=== PATIENT | female | born 1940 | race Caucasian/White ===

== ENCOUNTER 2016-07-16 18:54 | Inpatient (IN) ==
[2016-07-16 20:11] LABS: Basophils % 0.5 % (0.0-0.8); Eosinophils # 0.3 10*3/uL (0.0-0.87); Eosinophils % 4.5 % (0.00-10.9); Hematocrit 29.4 VOL% (35.7-47.0); Hemoglobin 10.1 GM/DL (12.0-16.0); Immature Granulocytes % 0.3 %; Immature Granulocytes Absolute 0.02 #; Lymphocytes # 3.4 10*3/uL (1.4-4.0); Lymphocytes % 45.2 % (21.3-54.2); Mean Corpuscular HGB Conc 34.4 GM/DL (32-36); Mean Corpuscular Hemoglobin 30 PG (27-34); Mean Corpuscular Volume 88.6 FL (87-102); Mean Platelet Volume 9.7 FL (9.6-12.0); Monocytes # 0.5 10*3/uL (0.11-0.8); Monocytes % 6.9 % (1.7-12.7); Neutrophils # 3.2 10*3/uL (1.4-7.4); Neutrophils % 42.6 % (38.7-73.9); Platelet Count 207 T/CUMM (130-400); Red Blood Count 3.32 MC/CUMM (3.8-5.5); Red Cell Distribution Width 11.5 % (9.3-17.3); White Blood Count 7.5 T/CUMM (4-12)
--- NOTE | 2016-07-16 20:12 | Emergency Department Note ---
Arrival - Arrival Chief Complaint: Abdominal / Flank Pain Stated Complaint: pancreatitus diagnosed pain in back and under rib ED Nursing Triage Note: C/O Upper abd pain radiating into back. Onset July 14. Pt was seen on day of onset and pt reports that she was diagnosed with pancreatitis. Pt state she is taking medications without any relief. Mode of Arrival: Ambulatory Limitations: No Limitations Source: Patient, Old Records Reviewed Time Seen by Provider: 07/16/16 19:34 - History of Present Illness HPI Narrative: The patient complains of continuing abdominal pain and mild nausea. I saw this patient 2 days ago. At that time she complained of upper abdominal pain for the past week. A workup was done which was significant for an elevated lipase and also a large amount of stool seen on the CT scan. I sent her home on hydrocodone, lactulose and Zofran and instructions for a clear liquid diet gradually progressing. She reports no improvement in her symptoms. She states that she is also having some low back pain now. She has had some dark stools as well. Still has had no vomiting. Date of Last Menstrual Period: PM Allergies/Adverse Reactions: Allergies Allergy/AdvReac Type Severity Reaction Status Date / Time Sulfa (Sulfonamide AdvReac Headache Verified 04/08/16 17:03 Antibiotics) Home Medications: Home Medications Medication Instructions Recorded Confirmed Type Levothyroxine Tab [Synthroid Tab] 75 mcg PO AC BREAKFAST 06/23/15 07/16/16 History Aspirin EC Tab 81 mg PO QAM 04/08/16 07/16/16 History Sertraline [Zoloft] 25 mg PO QPM 04/08/16 07/16/16 History Fluticasone 110 Mcg Inhaler 110 mcg INH BID 05/16/16 07/16/16 History [Flovent 110 mcg Inhaler] Metoprolol Succinate 12.5 mg PO QAM 05/16/16 07/16/16 History HYDROcodone/ACETAMIN 7.5-325 1 tablet PO Q4H #20 tablet 07/15/16 07/16/16 Rx [[place] 7.5-325] Lactulose Liquid [Chronulac] 20 gm PO DAILY #7 udcup 07/15/16 07/16/16 Rx Ondansetron [Ondansetron Odt] 4 mg PO Q4H PRN #20 tab.rapdis 07/15/16 07/16/16 Rx Ipratropium/Albuterol Inhaler 1 puff INH QID 07/16/16 07/16/16 History [Combivent Respimat Inhaler] Lisinopril/Hctz 20-25 [Prinzide 1 tablet PO QPM 07/16/16 07/16/16 History 20-25] Pantoprazole Tab [Protonix Tab] 40 mg PO DAILY PRN 07/16/16 07/16/16 History Review of System - Review of System 12 point system: reviewed and no additional remarkable complaints except as stated - Review of System Constitutional: Absent: fever Respiratory: Absent: cough Cardiovascular: Absent: chest pain Gastrointestinal: Present: abdominal pain, nausea, melena (Possible). Absent: vomiting, diarrhea, constipation, hematemesis, hematochezia Musculoskeletal: Present: back pain Medical,Surgical,& Family Hx - Medical History Cardio: History of: Hypertension Endocrine: History of: Thyroid Disorder (hypothyroid) Respiratory: History of: Asthma, COPD Gastrointestinal: History of: Pancreatitis - Surgical History Surgical History: noncontributory - Family History Family History: Reports;: Family Diabetes, Family Hypertension - Social History Smoking Status: Never smoker Frequency of Alcohol Use: None Type of Drug Use: None Exam Physical Examination: GENERAL: Alert. No acute distress. HEENT: Normocephalic and atraumatic. There is no nasal drainage. No pharyngeal erythema or exudate. NECK: Normal inspection. Supple. No lymphadenopathy or meningismus. LUNGS: No respiratory distress. Clear to auscultation bilaterally, no wheezes, rales or rhonchi. HEART: Regular rate and rhythm. ABDOMEN: Soft, nondistended with normal bowel sounds. Mild epigastric tenderness without guarding or rebound. Rectal: Positive noninflamed, nonthrombosed external hemorrhoids. No tenderness. Heme negative. BACK: Normal inspection. SKIN: Color normal. Warm and dry. EXTREMITIES: Nontender. Normal range of motion. No pedal edema. NEUROLOGICAL/PSYCHIATRIC: Alert and oriented -3 with normal mood and affect. Cranial nerves normal. No motor or sensory deficit. Vital Signs: Vital Signs Temperature 98.4 F 07/16/16 19:12 Pulse Rate 86 07/16/16 19:12 Respiratory Rate 14 07/16/16 19:12 Blood Pressure 158/79 07/16/16 19:12 O2 Sat by Pulse Oximetry 98 07/16/16 19:12 Course - Reevaluation(s) Reevaluation #1: Because of the patient's abdominal pain is unclear. Her lipase is now down to 361 and I would have expected her pain and symptoms to improve if this were pancreatitis. She now also has a slightly low sodium and potassium, presumably from the clear liquid diet. I discussed the patient with Dr. Hunter and will admit to Dr. Hopper for observation, fluids, repletion of sodium and potassium and further evaluation. Time: 22:35 Results - Labs CBC & BMP: 07/16/16 20:03 07/16/16 20:03 Lab Results: I have reviewed the patients labs Labs: Laboratory Tests 07/14/16 07/16/16 07/16/16 22:32 19:54 20:03 Total Bilirubin 0.80 AST 17 ALT 17 Alkaline Phosphatase 62 Amylase Lipase 550.0 H Ur Specific [place] 1.002 Urine WBC <1 07/16/16 20:03 Total Bilirubin AST ALT Alkaline Phosphatase Amylase 88 Lipase 361.0 D Ur Specific [place] Urine WBC - Impressions Gallbladder ultrasound shows no evidence of cholecystitis or cholelithiasis. KUB shows no acute abdominal pathology. Disposition Clinical Impression: Anemia, Abdominal pain, Hyponatremia, Hypokalemia Case discussed with: patient, patient's family Disposition: Still a Patient Condition: Stable Time of Disposition: 22:33
[2016-07-16] MEDS ORDERED: SODIUM CHLORIDE 0.9% 1,000 ML IV STA (20:15)
[2016-07-16] MEDS ORDERED: ONDANSETRON 4 MG/2 ML VIAL IV STA (20:15)
[2016-07-16 20:16] LABS: Apearance,Urine CLEAR (Clear); Bilirubin,Urine Negative (Negative); Blood, Urine Negative (Negative); Glucose,Urine (UA) Negative (Negative); Ketones,Urine Negative (Negative); Nitrite,Urine Negative (Negative); Protein,Urine Negative; Squamous Epithelial Cell,Urine Occasional /HPF (0-10); Urine Color Colorless (Yellow); Urine Specific Gravity 1.002 (1.001-1.035); Urine Urobilinogen < 2.0 EU/DL (0.2-1.0); WBC,Urine <1 /HPF (0-6)
--- NOTE | 2016-07-16 20:39 | XRay Report ---
Referring Physician: Ricardo Biggs Exam: XR KUB Date: July 16, 2016 at 8:09 PM Reason: Generalized abdominal pain Comparison: CT abdomen and pelvis July 14, 2016 Findings: There is no evidence of bowel obstruction or free air. No renal calculi are identified. There is degenerative change and scoliosis at the lumbar spine, but no acute osseous process is seen. Impression: No acute abdominal process is identified. PROCEDURE INTERPRETED AT [facility] DEPARTMENT OF RADIOLOGY Final Report Signed by: Dr. Rob Ye
[2016-07-16 20:44] LABS: Albumin 4.1 G/DL (3.4-5.0); Bilirubin,Total 0.8 MG/DL (0.2-1.0); Calcium 9.1 MG/DL (8.5-10.1); Osmolality,Calculated 258.9 MOS/KG (273-304); Potassium 3.3 MMOL/L (3.5-5.1); Total Protein 6.9 G/DL (6.4-8.3)
--- NOTE | 2016-07-16 20:55 | Ultrasound Report ---
Referring Physician: Ricardo Biggs Exam: US gallbladder Date: July 16, 2016 Reason: Abdominal pain Comparison: Right upper quadrant abdominal ultrasound June 23, 2015 Technique: Grayscale and color flow ultrasound images of the right abdomen were obtained. Ultrasound images were captured and stored. Findings: The liver measures 13.7 cm in length. No suspicious hepatic lesion is identified. No gallstones are seen. No abnormal gallbladder wall thickening or pericholecystic fluid is identified. The common bile duct is upper normal in size, measuring 0.5 cm in diameter. The patient reports a history of pancreatitis. However, the pancreas is unremarkable as visualized. Of note, early/mild pancreatitis can sometimes not have imaging findings. The right kidney measures 9.0 x 4.6 x 3.7 cm. No right hydronephrosis or suspicious renal lesion is identified. No ascites is seen, and the visualized IVC appears patent. Impression: 1. There is no sonographic evidence of cholelithiasis or acute cholecystitis. 2. The patient reports a history of pancreatitis. The pancreas is unremarkable as visualized. However, early/mild pancreatitis can sometimes not have imaging findings. PROCEDURE INTERPRETED AT [facility] DEPARTMENT OF RADIOLOGY Final Report Signed by: Dr. Rob Ye
[2016-07-16] MEDS ORDERED: ONDANSETRON 4 MG/2 ML VIAL IV PRN (23:14)
[2016-07-16] MEDS ORDERED: ACETAMINOPHEN 325 MG TABLET PO PRN (23:14)
[2016-07-16] MEDS ORDERED: ONDANSETRON 4 MG/2 ML VIAL ONE (23:41)
[2016-07-17] MEDS: SODIUM CHLOR 0.9% KCL 20 MEQ 20 MEQ/1,000 ML BAG IV SCH ×3 (00:54→17:59)
[2016-07-17] MEDS: ALBUTEROL/IPRATROPIUM 3 ML NEB RESP TX SCH ×4 (07:05→19:12)
[2016-07-17] MEDS: LEVOTHYROXINE 75 MCG TABLET PO SCH (07:07)
[2016-07-17] MEDS: METOPROLOL SUCCINATE XL 25 MG TABLET PO SCH (09:27)
[2016-07-17] MEDS: DOCUSATE SODIUM 100 MG CAPSULE PO SCH ×2 (09:27→20:47)
[2016-07-17] MEDS: PANTOPRAZOLE 40 MG VIAL IV SCH (09:27)
[2016-07-17] MEDS: FLUTICASONE 110 MCG/PUFF INHALER 12 GM INH SCH (09:29)
--- NOTE | 2016-07-17 11:34 | Gastrointestinal Consult Note ---
Assessment and Plan (1) Abdominal pain Status: Acute Assessment and plan: 07/17-1 week history of upper abdominal pain radiating to left upper quadrant and back with associated nausea. No reports of vomiting. Findings 3 days prior of elevated lipase without findings on recent imaging of pancreatitis. No prior endoscopy in the past. Lipase 361. Plan an addendum to followed by Dr. Reese. Current Visit: Yes History of Present Illness Chief complaint: Abdominal pain, nausea History of present illness: Ms. Greco is a 76 year old female who was admitted to the hospital with 1 week history of upper abdominal pain patient states the pain started suddenly in her upper abdomen and radiated across to her left upper quadrant. She states that the pain was severe in nature and was associated with nausea however denies any vomiting. Patient states when the pain initially began she attempted to see Dr. Hopper in clinic however was unable to do so. She went back home and attempted to control her pain but ended up presenting to the ER for evaluation. She was found in the emergency room 3 days ago to have elevated lipase level at 550. She also had a CT of the abdomen without contrast which only showed colonic diverticulosis without diverticulitis. She was sent home at that time on clear liquids however patient states the pain did not improve and she returned back to the ER. At that time she had an abdominal ultrasound which showed no evidence of cholelithiasis or acute cholecystitis with unremarkable findings of the pancreas. Lipase level was down to 361. Patient denies any long-term NSAID use. She denies any reports of dysphagia, odynophagia. She does have reflux however states this is fairly controlled. She does complain of a recent increase in belching and bloating. Denies any melena or hematochezia. Denies any vomiting with coffee-ground or hematemesis. Denies fever, chills. She states that she did have some weight loss, that was unwarranted over the last several months and has tried to change her diet recently and began eating a large amount of fatty foods. She denies any history of alcohol use. Denies any new or recent changes in medications. She has never had endoscopy done in the past. Home Medications Medication Instructions Recorded Confirmed Type Levothyroxine Tab [Synthroid Tab] 75 mcg PO AC BREAKFAST 06/23/15 07/17/16 History Aspirin EC Tab 81 mg PO QAM 04/08/16 07/17/16 History Sertraline [Zoloft] 25 mg PO QPM 04/08/16 07/17/16 History Metoprolol Succinate 12.5 mg PO QAM 05/16/16 07/17/16 History HYDROcodone/ACETAMIN 7.5-325 1 tablet PO Q4H #20 tablet 07/15/16 07/17/16 Rx [[place] 7.5-325] Ondansetron [Ondansetron Odt] 4 mg PO Q4H PRN #20 tab.rapdis 07/15/16 07/17/16 Rx Ipratropium/Albuterol Inhaler 1 puff INH QID 07/16/16 07/17/16 History [Combivent Respimat Inhaler] Lisinopril/Hctz 20-25 [Prinzide 1 tablet PO QPM 07/16/16 07/17/16 History 20-25] Pantoprazole Tab [Protonix Tab] 40 mg PO DAILY PRN 07/16/16 07/17/16 History Fluticasone 110 Mcg Inhaler 110 mcg INH DAILY 07/17/16 07/17/16 History [Flovent 110 mcg Inhaler] Allergies Allergy/AdvReac Type Severity Reaction Status Date / Time Sulfa (Sulfonamide AdvReac Headache Verified 04/08/16 17:03 Antibiotics) Medical,Surgical,& Family Hx - Medical History Cardio: History of: Cardiac Dysrhythmia (has tachycardia at times and has a murmur), Hypertension Psychological: History of: Anxiety Disorders (anxiety at times) Endocrine: History of: Thyroid Disorder (hypothyroid) Respiratory: History of: Asthma, COPD Gastrointestinal: History of: GERD, Hemorrhoids, Pancreatitis - Surgical History Abdominal Surgeries: Patient denies: Abdominal Surgery - Family History Family History: Reports;: Family Diabetes, Family Hypertension - Social History Smoking Status: Never smoker Frequency of Alcohol Use: None Type of Drug Use: None 12 point system: reviewed and no additional remarkable complaints except as stated - Constitutional Constitutional: Present: as per HPI - EENT Eyes: Present: as per HPI Ears: Present: as per HPI Nose, mouth and throat: Present: as per HPI - Cardiovascular Cardiovascular: Present: as per HPI - Respiratory Respiratory: Present: as per HPI - Gastrointestinal Gastrointestinal: Present: as per HPI, abdominal pain, bloating, nausea - Genitourinary Genitourinary: Present: as per HPI - Musculoskeletal Musculoskeletal: Present: as per HPI - Neurological Neurological: Present: as per HPI - Psychiatric Psychiatric: Present: as per HPI - Endocrine Endocrine: Present: as per HPI - Hematologic/Lymphatic Hematologic/Lymphatic: Present: as per HPI Exam - Constitutional Vitals: Period Temp Pulse Resp BP Sys/Hall Pulse Ox Last 24 Hr 97.7 F-98 F 60-77 18-20 100-125/51-71 69-98 General appearance: normal weight, no acute distress - Head Head exam: Present: normal inspection, normocephalic - Eye Eye exam: Present: other (Lids and conjunctivae unremarkable). Absent: scleral icterus - ENT ENT exam: Present: normal exam, normal oropharynx - Neck Neck exam: Present: normal inspection - Respiratory Respiratory exam: Present: clear to auscultation bilaterally. Absent: rales, rhonchi, wheezes - Cardiovascular Cardiovascular exam: Present: regular rate and rhythm. Absent: diastolic murmur , JVD, systolic murmur - GI/Abdominal GI/Abdominal exam: Present: normal bowel sounds, soft. Absent: ascites, distended, mass, organomegaly, tenderness - Extremities Exam Extremities exam: Present: normal inspection, full ROM - Back Exam Back exam: Present: normal inspection - Neurological Exam Neurological exam: Present: alert, oriented X3 - Psychiatric Psychiatric exam: Present: normal affect, normal mood - Skin Skin exam: Present: normal color, warm, dry Results - Labs CBC & BMP: 07/16/16 20:03 07/16/16 20:03 Lab Results: I have reviewed the past 24 hour labs - Diagnostic Findings Procedure: CT Abdomen and Pelvis: report reviewed by me, Ultrasound: report reviewed by me
[2016-07-17] MEDS ORDERED: LISINOPRIL/HCTZ 20-25 MG TABLET PO SCH (21:00)
[2016-07-17] MEDS ORDERED: SERTRALINE 25 MG TABLET PO SCH ×2 (21:00)
[2016-07-18 06:24] LABS: Hematocrit 26.3 VOL% (35.7-47.0); Hemoglobin 8.8 GM/DL (12.0-16.0)
[2016-07-18 06:56] LABS: Calcium 8.6 MG/DL (8.5-10.1); Potassium 4.3 MMOL/L (3.5-5.1)
[2016-07-18 07:02] LABS: % Iron Saturation 16.2 % (18-50); Ferritin 233.3 ng/ml (8-252)
[2016-07-18] MEDS: ALBUTEROL/IPRATROPIUM 3 ML NEB RESP TX SCH ×2 (07:20→10:31)
--- NOTE | 2016-07-18 09:01 | Family Practice History&Phys ---
Assessment and Plan (1) Abdominal pain Status: Acute Assessment and plan: 07/17/2016: GI has already initiated plan and we will follow along with him. She is on a proton pump inhibitor as well as mild pain for medication Current Visit: Yes (2) Anemia Status: Acute Assessment and plan: 07/17/2016: We are going to recheck CBC in the morning Current Visit: Yes (3) Hypokalemia Status: Acute Assessment and plan: 07/17/2016: Supplement potassium as needed Current Visit: Yes (4) Abdominal pain Status: Acute Assessment and plan: 07/17/2016: We will treat palliatively with pain medications as needed Current Visit: No History of Present Illness Chief complaint: Abdominal discomfort, nausea History of present illness: Ms. Greco is a 76 year old female Well-known to me. She came to my clinic several days ago with mild diffuse abdominal discomfort with some slight nausea but was stable hemodynamically. We did give her some palliative medicines for possible gastroenteritis. She subsequently went to the emergency room and had similar pain. A CT scan did reveal some diverticulosis but no diverticulitis. She did have some pancreatic enzymes which were very slightly elevated with a lipase up to 550. Otherwise she was okay and sent home. She continued to have the pain in her back to the emergency room and an abdominal ultrasound was done which did not show any acute cholecystitis or cholelithiasis. (The lipase had come down some as well) patient denies any blood in her stool and no recent medication changes. She has only had nausea and no diarrhea. Has had a little bit of bloating in the abdomen however no oly abdominal distress. Has been admitted and will get a GI workup which is already been initiated. Home Medications Medication Instructions Recorded Confirmed Type Levothyroxine Tab [Synthroid Tab] 75 mcg PO AC BREAKFAST 06/23/15 07/17/16 History Aspirin EC Tab 81 mg PO QAM 04/08/16 07/17/16 History Sertraline [Zoloft] 25 mg PO QPM 04/08/16 07/17/16 History Metoprolol Succinate 12.5 mg PO QAM 05/16/16 07/17/16 History HYDROcodone/ACETAMIN 7.5-325 1 tablet PO Q4H #20 tablet 07/15/16 07/17/16 Rx [[place] 7.5-325] Ondansetron [Ondansetron Odt] 4 mg PO Q4H PRN #20 tab.rapdis 07/15/16 07/17/16 Rx Ipratropium/Albuterol Inhaler 1 puff INH QID 07/16/16 07/17/16 History [Combivent Respimat Inhaler] Lisinopril/Hctz 20-25 [Prinzide 1 tablet PO QPM 07/16/16 07/17/16 History 20-25] Pantoprazole Tab [Protonix Tab] 40 mg PO DAILY PRN 07/16/16 07/17/16 History Fluticasone 110 Mcg Inhaler 110 mcg INH DAILY 07/17/16 07/17/16 History [Flovent 110 mcg Inhaler] Allergies Allergy/AdvReac Type Severity Reaction Status Date / Time Sulfa (Sulfonamide AdvReac Headache Verified 04/08/16 17:03 Antibiotics) 12 point system: reviewed and no additional remarkable complaints except as stated (That mentioned above.) - EENT Nose, mouth and throat: Absent: epistaxis, neck pain, sore throat - Cardiovascular Cardiovascular: Absent: chest pain at rest, orthopnea - Respiratory Respiratory: Absent: cough, wheezing - Gastrointestinal Gastrointestinal: Present: abdominal pain. Absent: melena Medical,Surgical,& Family Hx - Medical History Cardio: History of: Cardiac Dysrhythmia (has tachycardia at times and has a murmur), Hypertension Psychological: History of: Anxiety Disorders (anxiety at times) Endocrine: History of: Thyroid Disorder (hypothyroid) Respiratory: History of: Asthma, COPD Gastrointestinal: History of: GERD, Hemorrhoids, Pancreatitis - Surgical History Abdominal Surgeries: Patient denies: Abdominal Surgery - Family History Family History: Reports;: Family Diabetes, Family Hypertension - Social History Smoking Status: Never smoker Frequency of Alcohol Use: None Type of Drug Use: None Exam - Constitutional Vitals: Period Temp Pulse Resp BP Sys/Hall Pulse Ox Last 24 Hr 98.2 F-99.2 F 73-82 18-20 103-120/44-63 95-98 Exam: Generally well-developed female is very alert and oriented answers all questions appropriately. HEENT pupils equal reactive to light extraocular movements are intact neck is supple trachea midline Cardiovascular rate is regular no gallop or rub. No murmurs are appreciated. Lungs clear bilaterally no shortness of breath Abdomen mild diffuse tenderness perhaps a little more in the epigastric area Extremities no clubbing cyanosis or Results - Labs CBC & BMP: 07/18/16 05:23 07/18/16 05:23
[2016-07-18] MEDS: SODIUM CHLOR 0.9% KCL 20 MEQ 20 MEQ/1,000 ML BAG IV SCH (09:03)
--- NOTE | 2016-07-18 10:34 | EKG Report ---
Stationary ECG Study [facility] Test Date: 07/18/2016 10:32:47 AM Pat Name: YAMINI WELSH Department: Room: 229 Gender: F Certified Adapted Physical Educator: [place] : 1940 Requested by: Fela Mcclendon Order Number: [id number] Reading MD: HUNG PYLE Intervals [place] Rate: 71 P: 63 MT: 132 QRS: 82 QRSD: 76 T: 80 QT: 330 QTc: 353 Interpretive Statements SINUS RHYTHM MODERATE ST DEPRESSION SHORT QT INTERVAL Electronically Signed On 07-24-16 08:24:38 CDT by HUNG PYLE [email or web address]
--- NOTE | 2016-07-18 11:34 | History and Physical Update ---
History and Physical Update - Physical Exam Mental Status: alert and oriented Heart: regular rate and rhythm Lung: clear to auscultation Abdomen: within normal limits Vitals: within normal limits History and Physical Changes: Patient is a 76-year-old female admitted with recent upper abdominal pain which has resolved in the last couple of days. She does have anemia with hemoglobin falling from 14-8.8 over the last year. Her weight is stable. She had elevated lipase on admission but with no pancreatic inflammatory changes seen on CT abdomen.
[2016-07-18] MEDS ORDERED: LIDOCAINE 2% 5 ML VIAL ONE (11:36)
[2016-07-18] MEDS ORDERED: PROPOFOL 200 MG/20 ML VIAL IV ONE (11:36)
--- NOTE | 2016-07-18 11:41 | Operative Note ---
Date of procedure: 07/18/16 Pre-op diagnosis: Iron deficiency anemia, upper abdominal pain Procedure: Procedure: Esophagogastroduodenoscopy Brief clinical abstract: Patient is a 76-year-old female admitted with recent upper abdominal pain over the last week. She also has been noted to have anemia with her hemoglobin falling from 13.8-8.8 in the last year. She denies any gross GI bleeding. She reports that her weight is stable. Transferrin saturation was depressed at 16% with normal ferritin. Indication for procedure: Iron deficiency anemia, upper abdominal pain Endoscopic findings:[After informed consent was obtained, the patient was placed in the left lateral decubitus position. The gastroscope was inserted in the upper esophagus under direct vision with no resistance encountered. Esophageal mucosa appeared normal to the squamocolumnar junction. There was a single longitudinal erosion less than 5 mm in length consistent with reflux etiology. A hiatal hernia 2-3 cm in length was noted just distal to this. The endoscope was advanced in the stomach which was carefully examined including retroflexed view of the cardia and fundus with no other abnormality seen. The pyloric channel, duodenal bulb, second and third portion of the duodenum were normal. The endoscope was removed and patient appeared to tolerate the procedure well. Impression: #1 grade A LA classification esophagitis #2 hiatal hernia Recommendations: Reflux precautions. Patient needs colonoscopy at some point. Could do as outpatient if discharged today or could do tomorrow if remains inpatient. Anesthesia: MAC Surgeon / Physician: Ricardo Reese Estimated blood loss: none Specimens: none sent Condition: stable Disposition: post procedure unit Results - Labs CBC & BMP: 07/18/16 05:23 07/18/16 05:23 Discharge Plan - Discharge Medications No Action Levothyroxine Tab [Synthroid Tab] 75 mcg PO AC BREAKFAST Sertraline [Zoloft] 25 mg PO QPM Ondansetron [Ondansetron Odt] 4 mg PO Q4H PRN #20 tab.rapdis PRN Reason: Nausea Pantoprazole Tab [Protonix Tab] 40 mg PO DAILY PRN PRN Reason: GERD Aspirin EC Tab 81 mg PO QAM Metoprolol Succinate 12.5 mg PO QAM HYDROcodone/ACETAMIN 7.5-325 [[place] 7.5-325] 1 tablet PO Q4H #20 tablet Ipratropium/Albuterol Inhaler [Combivent Respimat Inhaler] 1 puff INH QID Lisinopril/Hctz 20-25 [Prinzide 20-25] 1 tablet PO QPM Fluticasone 110 Mcg Inhaler [Flovent 110 mcg Inhaler] 110 mcg INH DAILY - Follow Up or Referral - Forms/Instructions
--- NOTE | 2016-07-18 11:52 | Anesthesia Post-Op ---
Anesthesia Post OP - Post Ansesthetic Evaluation Patient seen in post op: Yes Resp: within normal limits CV: within normal limits Mental: within normal limits Temp: within normal limits [id number]: within normal limits Nausea and Vomiting: within normal limits Pain: within normal limits
[2016-07-18 13:17] VITALS: BP 143/80
--- NOTE | 2016-07-18 13:45 | Discharge Summary ---
Hospital Course - Hospital Course Hospital Course: Patient came to the hospital after having failed outpatient treatment for abdominal pain. She had been seen in the clinic and in the ER a few days prior. It was noted that she had a mild pancreatitis and was admitted for hydration as well as the fact that she has some anemia. A GI consult was done. We did do an ultrasound which showed no cholelithiasis however a follow-up EGD was done and this did reveal esophagitis as well as a significant hiatal hernia. Patient did resolve after time and pain improved. Was discharged home at this time for close follow-up. Please see hospital results were passed for further clarity Diagnosis - Discharge Diagnosis (1) Abdominal pain Status: Acute (2) Anemia Status: Acute (3) Hypokalemia Status: Acute (4) Abdominal pain Status: Inactive (5) Pancreatitis Status: Acute (6) Hiatal hernia Status: Acute Specialty Discharge - Follow Up or Referrals Follow up with: Ricardo Reese MD [Physician] - 2 Weeks (dr reese office will call you with appt.) Beka Hopper DO [Primary Care Provider] - 08/23/16 10:45 am Discharge Plan - Discharge Data Disposition: Disch To Home/Self Care Condition at Discharge: Stable Discharge Diet: advance to your usual diet Activity: resume usual activities as tolerated Hygiene: no restrictions Weight Bearing at Discharge: full weight bearing Driving: no restrictions Contact your physician if you experience:: Nausea/Vomiting, Bleeding - Discharge Medications New Ascorbic Acid [Vitamin C] 500 mg PO DAILY #30 tablet.er Ferrous Sulfate [Iron] 325 mg PO DAILY #30 tablet Continue Levothyroxine Tab [Synthroid Tab] 75 mcg PO AC BREAKFAST Sertraline [Zoloft] 25 mg PO QPM Ondansetron [Ondansetron Odt] 4 mg PO Q4H PRN #20 tab.rapdis PRN Reason: Nausea Pantoprazole Tab [Protonix Tab] 40 mg PO DAILY PRN PRN Reason: GERD Aspirin EC Tab 81 mg PO QAM Metoprolol Succinate 12.5 mg PO QAM Ipratropium/Albuterol Inhaler [Combivent Respimat Inhaler] 1 puff INH QID Lisinopril/Hctz 20-25 [Prinzide 20-25] 1 tablet PO QPM Fluticasone 110 Mcg Inhaler [Flovent 110 mcg Inhaler] 110 mcg INH DAILY Discontinued HYDROcodone/ACETAMIN 7.5-325 [[place] 7.5-325] 1 tablet PO Q4H #20 tablet - Follow Up or Referral Follow Up: Ricardo Reese MD [Physician] - 2 Weeks (dr reese office will call you with appt.) Beka Hopper DO [Primary Care Provider] - 08/23/16 10:45 am - Forms/Instructions Exam - Constitutional Vitals: Period Temp Pulse Resp BP Sys/Hall Pulse Ox Last 24 Hr 98.2 F-99.2 F 69-92 16-24 99-143/44-80 93-100 Discharge Results Procedures and tests throughout hospitalization: Pending Orders 07/17/16 10:42 Occult Blood, Stool Routine Labs on day of discharge: Labs from last 24 hours 07/18/16 07/18/16 07/18/16 05:23 05:23 05:23 Hgb Hct Sodium 143 Potassium 4.3 Chloride 112 H Carbon Dioxide 25 Anion Gap 10.3 BUN 11 Creatinine 1.00 GFR Calculation 49 BUN/Creatinine Ratio 11.00 Glucose 88 Calculated Osmolality 282.0 Calcium 8.6 Iron 35 L TIBC 216 L % Saturation 16.2 L Ferritin 233.3 Vitamin B12 367 07/18/16 05:23 Hgb 8.8 L Hct 26.3 L Sodium Potassium Chloride Carbon Dioxide Anion Gap BUN Creatinine GFR Calculation BUN/Creatinine Ratio Glucose Calculated Osmolality Calcium Iron TIBC % Saturation Ferritin Vitamin B12 DS: Provider Date of admission: 07/16/16 22:36 Primary care physician: Beka Hopper DO Attending physician on admission: Beka Hopper DO Consults: 07/16/16 23:14 Consult to Case Mgmt/Social Srvs [CONS] Routine Reason for Case Mgmt/Social Srvs: Discharge Planning Consult to Physician [CONS] Routine Comment: Abdominal pain Consulting Provider: Ricardo Reese Person Notified: GENESIS Date Notified: 07/17/16 Time Notified: 08:36 Discharging clinician: Beka Hopper DO
[2016-07-18] MEDS: DOCUSATE SODIUM 100 MG CAPSULE PO SCH (14:27)
[2016-07-18] MEDS: METOPROLOL SUCCINATE XL 25 MG TABLET PO SCH (14:27)
[2016-07-18] MEDS: FLUTICASONE 110 MCG/PUFF INHALER 12 GM INH SCH (14:28)
[2016-07-18] MEDS: PANTOPRAZOLE 40 MG VIAL IV SCH (14:28)
[2016-07-18] MEDS: LEVOTHYROXINE 75 MCG TABLET PO SCH (14:30)
== END 2016-07-18 16:16 | disposition home or self-care (01) | DRG 392 ==
LOC: N.ED 18:54 → N.EDINP 22:36 → N.2E 23:01
PROVIDERS: ADMIT Family Medicine; ATTEND Family Medicine

== ENCOUNTER 2020-08-18 22:37 | Observation (INO) ==
[2020-08-18] MEDS ORDERED: ASPIRIN 325 MG TABLET PO STA (23:54)
[2020-08-19 00:01] LABS: Basophils # 0.1 10*3/uL (0.0-0.2); Basophils % 0.6 % (0.0-0.8); Eosinophils # 0.4 10*3/uL (0.0-0.87); Eosinophils % 5.2 % (0.00-10.9); Hematocrit 38.5 VOL% (35.7-47.0); Hemoglobin 12.5 GM/DL (12.0-16.0); Immature Granulocytes % 0.2 %; Immature Granulocytes Absolute 0.02 #; Lymphocytes # 3.2 10*3/uL (1.4-4.0); Lymphocytes % 37.2 % (21.3-54.2); Mean Corpuscular HGB Conc 32.5 GM/DL (32-36); Mean Corpuscular Volume 91.9 FL (87-102); Mean Platelet Volume 9.1 FL (9.6-12.0); Monocytes % 6.7 % (1.7-12.7); Neutrophils % 50.1 % (38.7-73.9); Platelet Count 241 T/CUMM (130-400); Red Blood Count 4.19 MC/CUMM (3.8-5.5); Red Cell Distribution Width 12.4 % (9.3-17.3); White Blood Count 8.5 T/CUMM (4-12)
[2020-08-19 00:22] LABS: Albumin 4.4 G/DL (3.4-5.0); Bilirubin,Total 0.5 MG/DL (0.2-1.0); Osmolality,Calculated 279.5 MOS/KG (273-304); Potassium 3.5 MMOL/L (3.5-5.1); Total Protein 7.1 G/DL (6.4-8.2)
[2020-08-19] MEDS ORDERED: DEXTROSE 50% 25 GM/50 ML VIAL IV PRN (02:19)
[2020-08-19] MEDS ORDERED: ACETAMINOPHEN 325 MG TABLET PO PRN (02:19)
[2020-08-19] MEDS ORDERED: GLUCAGON 1 MG VIAL IM PRN (02:19)
[2020-08-19 03:43] LABS: Risk Ratio 3.45; VLDL CHOLESTEROL 23.6 MG/DL
[2020-08-19] MEDS ORDERED: LEVOTHYROXINE 75 MCG TABLET PO SCH (07:30)
[2020-08-19] MEDS ORDERED: ENOXAPARIN 40 MG/0.4 ML SYRINGE SUBCUT SCH (09:00)
[2020-08-19] MEDS ORDERED: FERROUS SULFATE 325 MG TABLET PO SCH (09:00)
[2020-08-19] MEDS ORDERED: MULTIVITAMIN (CENTRUM) TABLET PO SCH (09:00)
[2020-08-19] MEDS ORDERED: ASCORBIC ACID 500 MG TABLET PO SCH (09:00)
[2020-08-19] MEDS ORDERED: METOPROLOL SUCCINATE XL 25 MG TABLET PO SCH (09:00)
[2020-08-19] MEDS ORDERED: amLODIPine 5 MG TABLET PO SCH (09:00)
[2020-08-19 12:01] VITALS: BP 110/50
[2020-08-19] MEDS ORDERED: SERTRALINE 25 MG TABLET PO SCH (19:00)
[2020-08-20] MEDS ORDERED: ASPIRIN EC 81 MG TABLET PO SCH (09:00)
== END 2020-08-19 15:39 | disposition home or self-care (01) ==
LOC: N.ED 22:37 → N.EDINP 22:37 → SUATTDRO 08-19 02:19 → N.EDINP 08-19 06:57 → N.TELEN 08-19 07:11
PROVIDERS: ADMIT Internal Medicine; ATTEND Hospitalist

== ENCOUNTER 2020-08-24 23:14 | Observation (INO) ==
[2020-08-24] MEDS ORDERED: NITROGLYCERIN SL 0.4 MG TABLET SL STA (23:57)
[2020-08-24] MEDS ORDERED: MORPHINE 4 MG/1 ML VIAL IV ONE (23:57)
[2020-08-25 00:07] LABS: Basophils # 0.1 10*3/uL (0.0-0.2); Basophils % 0.9 % (0.0-0.8); Eosinophils # 0.5 10*3/uL (0.0-0.87); Eosinophils % 6.7 % (0.00-10.9); Hematocrit 38.3 VOL% (35.7-47.0); Hemoglobin 12.7 GM/DL (12.0-16.0); Immature Granulocytes % 0.3 %; Immature Granulocytes Absolute 0.02 #; Lymphocytes # 3.6 10*3/uL (1.4-4.0); Lymphocytes % 45.3 % (21.3-54.2); Mean Corpuscular HGB Conc 33.2 GM/DL (32-36); Mean Corpuscular Volume 92.7 FL (87-102); Monocytes % 7.2 % (1.7-12.7); Neutrophils % 39.6 % (38.7-73.9); Platelet Count 238 T/CUMM (130-400); Red Blood Count 4.13 MC/CUMM (3.8-5.5); Red Cell Distribution Width 12.6 % (9.3-17.3); White Blood Count 7.9 T/CUMM (4-12)
[2020-08-25] MEDS ORDERED: AMMONIA INHALANT 1 EACH AMP INH ONE (00:24)
[2020-08-25 00:26] LABS: Alanine Aminotransferase 20 U/L (13-56); Albumin 4.3 G/DL (3.4-5.0); Alkaline Phosphatase 73 U/L (45-117); Aspartate Amino Transferase 21 U/L (0-37); Blood Urea Nitrogen 12 MG/DL (7-18); Calcium 9.6 MG/DL (8.5-10.1); Carbon Dioxide 29 MMOL/L (21-32); Estimated Glom Filtration Rate 49 ML/MIN; Glucose 109 MG/DL (74-106); Osmolality,Calculated 279.4 MOS/KG (273-304); Potassium 3.9 MMOL/L (3.5-5.1); Sodium 140 MMOL/L (136-145); Total Protein 7.3 G/DL (6.4-8.2)
[2020-08-25] MEDS ORDERED: MORPHINE 4 MG/1 ML VIAL IV PRN (00:51)
[2020-08-25] MEDS ORDERED: DEXTROSE 50% 25 GM/50 ML VIAL IV PRN (00:51)
[2020-08-25] MEDS ORDERED: ACETAMINOPHEN 325 MG TABLET PO PRN (00:51)
[2020-08-25] MEDS ORDERED: ONDANSETRON 4 MG/2 ML VIAL IV PRN (00:51)
[2020-08-25] MEDS ORDERED: GLUCAGON 1 MG VIAL IM PRN (00:51)
[2020-08-25] MEDS: ENOXAPARIN 40 MG/0.4 ML SYRINGE SUBCUT SCH (05:10)
[2020-08-25] MEDS ORDERED: PANTOPRAZOLE 40 MG TABLET PO SCH (09:00)
[2020-08-25] MEDS: LEVOTHYROXINE 75 MCG TABLET PO SCH (10:45)
[2020-08-25] MEDS: ASPIRIN CHEW 81 MG TABLET PO SCH (10:45)
[2020-08-25] MEDS: hydroCHLOROthiazide 25 MG TABLET PO SCH (10:45)
[2020-08-25] MEDS: METOPROLOL SUCCINATE XL 25 MG TABLET PO SCH (10:45)
[2020-08-25] MEDS: amLODIPine 5 MG TABLET PO SCH (10:45)
[2020-08-25] MEDS: PANTOPRAZOLE 40 MG TABLET PO SCH (10:45)
[2020-08-25] MEDS ORDERED: IPRATROPIUM 500 MCG/2.5 ML NEB RESP TX PRN (16:13)
[2020-08-25] MEDS: NITROGLYCERIN SL 0.4 MG TABLET SL PRN (18:49)
[2020-08-25] MEDS: SERTRALINE 25 MG TABLET PO SCH (20:47)
[2020-08-25] MEDS ORDERED: diphenhydrAMINE CAP 25 MG CAPSULE PO ONE (21:00)
[2020-08-26] MEDS: ENOXAPARIN 40 MG/0.4 ML SYRINGE SUBCUT SCH (01:12)
[2020-08-26] MEDS: LEVOTHYROXINE 75 MCG TABLET PO SCH (05:58)
[2020-08-26 06:27] LABS: Basophils # 0.1 10*3/uL (0.0-0.2); Basophils % 1.2 % (0.0-0.8); Eosinophils # 0.5 10*3/uL (0.0-0.87); Eosinophils % 6.9 % (0.00-10.9); Hematocrit 38.6 VOL% (35.7-47.0); Hemoglobin 12.4 GM/DL (12.0-16.0); Immature Granulocytes % 0.2 %; Immature Granulocytes Absolute 0.01 #; Lymphocytes # 3.1 10*3/uL (1.4-4.0); Mean Corpuscular HGB Conc 32.1 GM/DL (32-36); Mean Corpuscular Volume 93.9 FL (87-102); Mean Platelet Volume 9.5 FL (9.6-12.0); Monocytes % 7.5 % (1.7-12.7); Neutrophils % 37.2 % (38.7-73.9); Platelet Count 245 T/CUMM (130-400); Red Blood Count 4.11 MC/CUMM (3.8-5.5); Red Cell Distribution Width 12.6 % (9.3-17.3); White Blood Count 6.7 T/CUMM (4-12)
[2020-08-26 06:43] LABS: Calcium 9.6 MG/DL (8.5-10.1); Osmolality,Calculated 272.8 MOS/KG (273-304); Potassium 4.1 MMOL/L (3.5-5.1)
[2020-08-26 06:47] LABS: Atypical Lymphocytes Few; Eosinophils 8 % (0-10); Hypochromasia Slight; Lymphocytes 55 % (20-55); Microcytosis Slight; Platelet Estimate Adequate; Segmented Neutrophils 32 % (50-85); Total Cells Counted 100
[2020-08-26] MEDS ORDERED: methylPREDNISolone SOD SUC 125 MG/2 ML VIAL IV ONE (08:00)
[2020-08-26] MEDS: ASPIRIN CHEW 81 MG TABLET PO SCH (08:44)
[2020-08-26] MEDS: amLODIPine 5 MG TABLET PO SCH (08:45)
[2020-08-26] MEDS: METOPROLOL SUCCINATE XL 25 MG TABLET PO SCH (08:45)
[2020-08-26] MEDS ORDERED: diphenhydrAMINE CAP 25 MG CAPSULE PO ONE (09:00)
[2020-08-26] MEDS ORDERED: DIAZEPAM 5 MG TABLET PO ONE (09:00)
[2020-08-26] MEDS ORDERED: LIDOCAINE 1% 20 ML VIAL ONE (09:04)
[2020-08-26] MEDS ORDERED: VERAPAMIL 5 MG/2 ML VIAL ONE (09:04)
[2020-08-26] MEDS ORDERED: NITROGLYCERIN DRIP 50 MG/250 ML BOTTLE IV ONE (09:04)
[2020-08-26] MEDS ORDERED: fentaNYL 100 MCG/2 ML VIAL ONE (09:13)
[2020-08-26] MEDS ORDERED: MIDAZOLAM 2 MG/2 ML VIAL ONE (09:13)
[2020-08-26] MEDS ORDERED: ENOXAPARIN 30 MG/0.3 ML SYRINGE ONE (09:29)
[2020-08-26] MEDS ORDERED: EPTIFIBATIDE 75 MG/100 ML BOTTLE IV ONE (09:42)
[2020-08-26] MEDS ORDERED: EPTIFIBATIDE 20,000 MCG/10 ML VIAL ONE (09:42)
[2020-08-26] MEDS ORDERED: TICAGRELOR 90 MG TABLET ONE (10:05)
[2020-08-26] MEDS ORDERED: EPTIFIBATIDE 75 MG/100 ML BOTTLE IV SCH (10:30)
[2020-08-26] MEDS: PANTOPRAZOLE 40 MG TABLET PO SCH (12:04)
[2020-08-26] MEDS: FERROUS SULFATE 325 MG TABLET PO SCH (12:04)
[2020-08-26] MEDS: hydroCHLOROthiazide 25 MG TABLET PO SCH (12:04)
[2020-08-26] MEDS: TICAGRELOR 90 MG TABLET PO SCH (20:49)
[2020-08-26] MEDS: SERTRALINE 25 MG TABLET PO SCH (20:49)
[2020-08-27] MEDS: NITROGLYCERIN SL 0.4 MG TABLET SL PRN (00:47)
[2020-08-27] MEDS: SODIUM CHLORIDE 0.45% 1,000 ML IV SCH ×2 (00:56→04:43)
[2020-08-27] MEDS: ENOXAPARIN 40 MG/0.4 ML SYRINGE SUBCUT SCH (01:09)
[2020-08-27 05:49] LABS: Basophils % 0.1 % (0.0-0.8); Hematocrit 37.5 VOL% (35.7-47.0); Hemoglobin 12.2 GM/DL (12.0-16.0); Immature Granulocytes % 0.3 %; Immature Granulocytes Absolute 0.03 #; Lymphocytes # 1.4 10*3/uL (1.4-4.0); Lymphocytes % 12.1 % (21.3-54.2); Mean Corpuscular HGB Conc 32.5 GM/DL (32-36); Mean Corpuscular Volume 92.1 FL (87-102); Mean Platelet Volume 10.1 FL (9.6-12.0); Monocytes % 3.7 % (1.7-12.7); Neutrophils % 83.8 % (38.7-73.9); Platelet Count 266 T/CUMM (130-400); Red Blood Count 4.07 MC/CUMM (3.8-5.5); Red Cell Distribution Width 12.4 % (9.3-17.3); White Blood Count 11.5 T/CUMM (4-12)
[2020-08-27] MEDS: LEVOTHYROXINE 75 MCG TABLET PO SCH (05:53)
[2020-08-27 06:08] LABS: Calcium 9.4 MG/DL (8.5-10.1); Osmolality,Calculated 277.7 MOS/KG (273-304); Potassium 4.2 MMOL/L (3.5-5.1)
[2020-08-27 06:26] LABS: Calcium 9.5 MG/DL (8.5-10.1); Osmolality,Calculated 277.7 MOS/KG (273-304); Potassium 4.2 MMOL/L (3.5-5.1)
[2020-08-27 07:37] VITALS: BP 111/65
[2020-08-27] MEDS: ASPIRIN CHEW 81 MG TABLET PO SCH (08:46)
[2020-08-27] MEDS: TICAGRELOR 90 MG TABLET PO SCH (08:46)
[2020-08-27] MEDS: METOPROLOL SUCCINATE XL 25 MG TABLET PO SCH (08:47)
[2020-08-27] MEDS: hydroCHLOROthiazide 25 MG TABLET PO SCH (08:47)
[2020-08-27] MEDS: amLODIPine 5 MG TABLET PO SCH (08:47)
[2020-08-27] MEDS: PANTOPRAZOLE 40 MG TABLET PO SCH (08:47)
[2020-08-27] MEDS: FERROUS SULFATE 325 MG TABLET PO SCH (08:48)
[2020-08-28] MEDS ORDERED: LEVOTHYROXINE 100 MCG TABLET PO SCH (06:30)
== END 2020-08-27 12:35 | disposition home or self-care (01) ==
LOC: N.EDINP 23:14 → N.ED 23:14 → SUATTDRO 08-25 00:51 → N.TELES 08-25 13:48
PROVIDERS: ADMIT Internal Medicine; ATTEND Internal Medicine
PROC: CLCCHCL (ICD-10-PCS; 2020-08-26 10:45)

== ENCOUNTER 2020-08-29 17:15 | Observation (INO) ==
[2020-08-29] MEDS: NITROGLYCERIN SL 0.4 MG TABLET SL PRN ×2 (18:15→18:55)
[2020-08-29 18:25] LABS: Basophils # 0.1 10*3/uL (0.0-0.2); Basophils % 0.7 % (0.0-0.8); Eosinophils # 0.5 10*3/uL (0.0-0.87); Eosinophils % 5.9 % (0.00-10.9); Hematocrit 36.2 VOL% (35.7-47.0); Hemoglobin 12.3 GM/DL (12.0-16.0); Immature Granulocytes % 0.5 %; Immature Granulocytes Absolute 0.04 #; Lymphocytes # 2.7 10*3/uL (1.4-4.0); Lymphocytes % 32.9 % (21.3-54.2); Mean Platelet Volume 9.9 FL (9.6-12.0); Monocytes % 7.6 % (1.7-12.7); Neutrophils % 52.4 % (38.7-73.9); Platelet Count 251 T/CUMM (130-400); Red Blood Count 4.02 MC/CUMM (3.8-5.5); Red Cell Distribution Width 12.6 % (9.3-17.3); White Blood Count 8.3 T/CUMM (4-12)
[2020-08-29 18:41] LABS: PT Patient Result 11.2 SECS (10.5-12.0)
[2020-08-29 18:43] LABS: Bilirubin,Total 0.5 MG/DL (0.2-1.0); Calcium 9.6 MG/DL (8.5-10.1); Osmolality,Calculated 273.8 MOS/KG (273-304); Potassium 4.2 MMOL/L (3.5-5.1); Total Protein 6.8 G/DL (6.4-8.2)
[2020-08-29] MEDS ORDERED: DEXTROSE 50% 25 GM/50 ML VIAL IV PRN (20:39)
[2020-08-29] MEDS ORDERED: MORPHINE 4 MG/1 ML VIAL IV PRN (20:39)
[2020-08-29] MEDS ORDERED: hydrALAZINE 20 MG/1 ML VIAL IV PRN (20:39)
[2020-08-29] MEDS ORDERED: GLUCAGON 1 MG VIAL IM PRN (20:39)
[2020-08-29] MEDS ORDERED: IPRATROPIUM 500 MCG/2.5 ML NEB RESP TX PRN (20:48)
[2020-08-29 21:50] LABS: Hepatitis B Core IgM Quant < 0.05 Index; Hepatitis B Surface Ag Quant 0.16 Index; Hepatitis B Surface Ag Result Non-Reactive (NonReactive); Hepatitis C Virus Ab Quant < 0.02 Index; Hepatitis C Virus Ab Result Non-Reactive (NonReactive)
[2020-08-29] MEDS: TICAGRELOR 90 MG TABLET PO SCH (23:38)
[2020-08-29] MEDS: ENOXAPARIN 40 MG/0.4 ML SYRINGE SUBCUT SCH (23:38)
[2020-08-29] MEDS: SERTRALINE 25 MG TABLET PO SCH (23:39)
[2020-08-30] MEDS: LEVOTHYROXINE 100 MCG TABLET PO SCH (05:58)
[2020-08-30 06:49] LABS: Basophils % 0.9 % (0.0-0.8); Eosinophils % 9.4 % (0.00-10.9); Hematocrit 38.3 VOL% (35.7-47.0); Hemoglobin 12.9 GM/DL (12.0-16.0); Immature Granulocytes % 0.5 %; Lymphocytes # 2.9 10*3/uL (1.4-4.0); Lymphocytes % 38.3 % (21.3-54.2); Mean Corpuscular HGB Conc 33.7 GM/DL (32-36); Mean Corpuscular Volume 92.1 FL (87-102); Mean Platelet Volume 9.7 FL (9.6-12.0); Neutrophils % 42.9 % (38.7-73.9); Platelet Count 252 T/CUMM (130-400); Red Blood Count 4.16 MC/CUMM (3.8-5.5); Red Cell Distribution Width 12.8 % (9.3-17.3); White Blood Count 7.5 T/CUMM (4-12)
[2020-08-30 06:50] LABS: Basophils # 0.1 10*3/uL (0.0-0.2); Eosinophils # 0.7 10*3/uL (0.0-0.87); Immature Granulocytes Absolute 0.04 #
[2020-08-30 07:12] LABS: Albumin 3.9 G/DL (3.4-5.0); Bilirubin,Total 0.7 MG/DL (0.2-1.0); Calcium 9.7 MG/DL (8.5-10.1); Osmolality,Calculated 276.5 MOS/KG (273-304); Potassium 3.9 MMOL/L (3.5-5.1); Risk Ratio 3.33; Thyroid Stimulating Hormone 11.1 uIU/ml (0.358-3.74); VLDL CHOLESTEROL 31.2 MG/DL
[2020-08-30] MEDS: TICAGRELOR 90 MG TABLET PO SCH ×2 (10:18→21:00)
[2020-08-30] MEDS: ASPIRIN CHEW 81 MG TABLET PO SCH (10:19)
[2020-08-30] MEDS: METOPROLOL SUCCINATE XL 25 MG TABLET PO SCH (10:19)
[2020-08-30] MEDS: hydroCHLOROthiazide 25 MG TABLET PO SCH (10:19)
[2020-08-30] MEDS: amLODIPine 5 MG TABLET PO SCH (10:19)
[2020-08-30] MEDS: PANTOPRAZOLE 40 MG TABLET PO SCH (10:19)
[2020-08-30] MEDS: FERROUS SULFATE 325 MG TABLET PO SCH (10:19)
[2020-08-30] MEDS: SERTRALINE 25 MG TABLET PO SCH (21:00)
[2020-08-30] MEDS: ENOXAPARIN 40 MG/0.4 ML SYRINGE SUBCUT SCH (21:00)
[2020-08-31 06:23] LABS: Basophils # 0.1 10*3/uL (0.0-0.2); Basophils % 0.9 % (0.0-0.8); Eosinophils # 0.6 10*3/uL (0.0-0.87); Eosinophils % 8.9 % (0.00-10.9); Hematocrit 36.7 VOL% (35.7-47.0); Hemoglobin 11.7 GM/DL (12.0-16.0); Immature Granulocytes % 0.6 %; Immature Granulocytes Absolute 0.04 #; Lymphocytes # 2.6 10*3/uL (1.4-4.0); Lymphocytes % 39.8 % (21.3-54.2); Mean Corpuscular HGB Conc 31.9 GM/DL (32-36); Mean Corpuscular Volume 93.9 FL (87-102); Mean Platelet Volume 9.8 FL (9.6-12.0); Monocytes % 8.4 % (1.7-12.7); Neutrophils % 41.4 % (38.7-73.9); Platelet Count 239 T/CUMM (130-400); Red Blood Count 3.91 MC/CUMM (3.8-5.5); Red Cell Distribution Width 12.8 % (9.3-17.3); White Blood Count 6.5 T/CUMM (4-12)
[2020-08-31] MEDS: LEVOTHYROXINE 100 MCG TABLET PO SCH ×2 (06:38→07:33)
[2020-08-31 06:48] LABS: Atypical Lymphocytes Few; Band Neutrophils 2 % (0-10); Eosinophils 5 % (0-10); Lymphocytes 44 % (20-55); Microcytosis 1+; Ovalocytes Slight; Segmented Neutrophils 43 % (50-85); Total Cells Counted 100
[2020-08-31 06:57] LABS: Albumin 3.5 G/DL (3.4-5.0); Bilirubin,Total 0.9 MG/DL (0.2-1.0); Calcium 9.1 MG/DL (8.5-10.1); Osmolality,Calculated 276.5 MOS/KG (273-304); Potassium 3.4 MMOL/L (3.5-5.1); Total Protein 6.3 G/DL (6.4-8.2)
[2020-08-31] MEDS ORDERED: POTASSIUM CHLORIDE 20 MEQ TABLET PO ONE (07:12)
[2020-08-31 08:37] VITALS: BP 110/55
[2020-08-31] MEDS: amLODIPine 5 MG TABLET PO SCH (09:24)
[2020-08-31] MEDS: FERROUS SULFATE 325 MG TABLET PO SCH (09:24)
[2020-08-31] MEDS: hydroCHLOROthiazide 25 MG TABLET PO SCH (09:24)
[2020-08-31] MEDS: METOPROLOL SUCCINATE XL 25 MG TABLET PO SCH (09:24)
[2020-08-31] MEDS: TICAGRELOR 90 MG TABLET PO SCH (09:24)
[2020-08-31] MEDS: PANTOPRAZOLE 40 MG TABLET PO SCH (09:24)
[2020-08-31] MEDS: ASPIRIN CHEW 81 MG TABLET PO SCH (09:24)
== END 2020-08-31 10:40 | disposition home or self-care (01) ==
LOC: N.ED 17:15 → N.EDINP 17:15 → SUATTDRO 20:36 → N.TELEN 22:16
PROVIDERS: ADMIT Internal Medicine Geriatric Medicine; ATTEND Internal Medicine

== ENCOUNTER 2020-09-15 12:55 | Observation (INO) ==
[2020-09-15 13:50] LABS: Basophils # 0.1 10*3/uL (0.0-0.2); Basophils % 1.2 % (0.0-0.8); Eosinophils # 0.2 10*3/uL (0.0-0.87); Eosinophils % 3.8 % (0.00-10.9); Immature Granulocytes % 0.3 %; Immature Granulocytes Absolute 0.02 #; Lymphocytes # 1.7 10*3/uL (1.4-4.0); Lymphocytes % 27.7 % (21.3-54.2); Mean Corpuscular HGB Conc 33.3 GM/DL (32-36); Mean Corpuscular Volume 91.8 FL (87-102); Mean Platelet Volume 9.6 FL (9.6-12.0); Monocytes % 7.7 % (1.7-12.7); Neutrophils % 59.3 % (38.7-73.9); Platelet Count 258 T/CUMM (130-400); Red Blood Count 3.92 MC/CUMM (3.8-5.5); Red Cell Distribution Width 13.1 % (9.3-17.3)
[2020-09-15 14:29] LABS: Albumin 4.3 G/DL (3.4-5.0); Bilirubin,Total 1.5 MG/DL (0.20-1.00); Calcium 10.1 MG/DL (8.5-10.1); Osmolality,Calculated 278.5 MOS/KG (273-304); Potassium 3.8 MMOL/L (3.5-5.1); Total Protein 7.3 G/DL (6.4-8.2)
[2020-09-15] MEDS ORDERED: MORPHINE 10 MG/1 ML VIAL IV STA (15:04)
[2020-09-15] MEDS ORDERED: ONDANSETRON 4 MG/2 ML VIAL IV STA (15:04)
[2020-09-15] MEDS ORDERED: ENOXAPARIN 60 MG/0.6 ML SYRINGE SUBCUT STA (15:04)
[2020-09-15] MEDS ORDERED: fentaNYL 100 MCG/2 ML VIAL IV STA (15:07)
[2020-09-15] MEDS ORDERED: PROMETHAZINE 25 MG/1 ML VIAL IM STA (15:07)
[2020-09-15] MEDS ORDERED: ACETAMINOPHEN 500 MG TABLET PO STA (15:23)
[2020-09-15] MEDS ORDERED: DEXTROSE 50% 25 GM/50 ML VIAL IV PRN (15:55)
[2020-09-15] MEDS ORDERED: ACETAMINOPHEN 325 MG TABLET PO PRN (15:55)
[2020-09-15] MEDS ORDERED: ALUMINUM/MAGNES/SIMETH MAX STR 30 ML UDCUP PO PRN (15:55)
[2020-09-15] MEDS ORDERED: GLUCAGON 1 MG VIAL IM PRN (15:55)
[2020-09-15] MEDS ORDERED: ENOXAPARIN 40 MG/0.4 ML SYRINGE SUBCUT SCH (16:00)
[2020-09-15] MEDS ORDERED: NITROGLYCERIN SL 0.4 MG TABLET SL PRN (16:10)
[2020-09-15] MEDS ORDERED: hydroCHLOROthiazide 25 MG TABLET PO SCH (19:00)
[2020-09-15] MEDS ORDERED: SERTRALINE 25 MG TABLET PO SCH (21:00)
[2020-09-15] MEDS ORDERED: CLORAZEPATE 3.75 MG TABLET PO PRN (21:20)
[2020-09-15] MEDS: TICAGRELOR 90 MG TABLET PO SCH (21:44)
[2020-09-16 05:05] LABS: Potassium 3.8 MMOL/L (3.5-5.1)
[2020-09-16] MEDS ORDERED: LEVOTHYROXINE 100 MCG TABLET PO SCH (06:30)
[2020-09-16] MEDS ORDERED: IPRATROPIUM 500 MCG/2.5 ML NEB RESP TX PRN (07:00)
[2020-09-16] MEDS ORDERED: FERROUS SULFATE 325 MG TABLET PO SCH (09:00)
[2020-09-16] MEDS ORDERED: amLODIPine 5 MG TABLET PO SCH (09:00)
[2020-09-16] MEDS ORDERED: METOPROLOL SUCCINATE XL 25 MG TABLET PO SCH (09:00)
[2020-09-16] MEDS ORDERED: PANTOPRAZOLE 40 MG TABLET PO SCH (09:00)
[2020-09-16] MEDS ORDERED: MULTIVITAMIN (CENTRUM) TABLET PO SCH (09:00)
[2020-09-16] MEDS ORDERED: ASPIRIN CHEW 81 MG TABLET PO SCH (09:00)
[2020-09-16] MEDS: TICAGRELOR 90 MG TABLET PO SCH (10:19)
[2020-09-16 11:25] VITALS: BP 122/56
== END 2020-09-16 14:36 | disposition home health service (06) ==
LOC: N.ED 12:55 → N.EDINP 12:55 → N.TELES 17:55
PROVIDERS: ADMIT Internal Medicine; ATTEND Internal Medicine

== ENCOUNTER 2021-01-20 00:09 | Observation (INO) ==
[2021-01-20] MEDS ORDERED: NITROGLYCERIN 2% OINT 1 INCH/GM PACK TOP STA (00:24)
[2021-01-20 00:49] LABS: Basophils # 0.1 10*3/uL (0.0-0.2); Eosinophils # 0.5 10*3/uL (0.0-0.87); Eosinophils % 6.5 % (0.00-10.9); Hematocrit 36.5 VOL% (35.7-47.0); Hemoglobin 11.7 GM/DL (12.0-16.0); Immature Granulocytes % 0.3 %; Immature Granulocytes Absolute 0.02 #; Lymphocytes # 3.2 10*3/uL (1.4-4.0); Lymphocytes % 43.7 % (21.3-54.2); Mean Corpuscular HGB Conc 32.1 GM/DL (32-36); Mean Corpuscular Volume 91.9 FL (87-102); Mean Platelet Volume 9.4 FL (9.6-12.0); Monocytes % 7.7 % (1.7-12.7); Neutrophils % 40.8 % (38.7-73.9); Platelet Count 244 T/CUMM (130-400); Red Blood Count 3.97 MC/CUMM (3.8-5.5); Red Cell Distribution Width 13.1 % (9.3-17.3); White Blood Count 7.3 T/CUMM (4-12)
[2021-01-20 01:15] LABS: Albumin 3.9 G/DL (3.4-5.0); Bilirubin,Total 0.4 MG/DL (0.20-1.00); Calcium 9.6 MG/DL (8.5-10.1); Osmolality,Calculated 280.4 MOS/KG (273-304); Potassium 4.1 MMOL/L (3.5-5.1); Total Protein 6.6 G/DL (6.4-8.2)
[2021-01-20] MEDS ORDERED: ENOXAPARIN 100 MG/ML SYRINGE SUBCUT STA (03:11)
[2021-01-20] MEDS ORDERED: ENOXAPARIN 60 MG/0.6 ML SYRINGE SUBCUT STA (03:12)
[2021-01-20] MEDS ORDERED: ACETAMINOPHEN 325 MG TABLET PO PRN (04:29)
[2021-01-20] MEDS ORDERED: DEXTROSE 50% 25 GM/50 ML VIAL IV PRN (04:29)
[2021-01-20] MEDS ORDERED: MORPHINE 2 MG/1 ML SYRINGE IV PRN (04:29)
[2021-01-20] MEDS ORDERED: GLUCAGON 1 MG VIAL IM PRN (04:29)
[2021-01-20 05:22] LABS: Risk Ratio 3.19; VLDL Cholesterol 22.4 MG/DL
[2021-01-20] MEDS ORDERED: NITROGLYCERIN 2% OINT 1 INCH/GM PACK TOP SCH (06:00)
[2021-01-20] MEDS: ASPIRIN CHEW 81 MG TABLET PO SCH (06:53)
[2021-01-20] MEDS ORDERED: POTASSIUM CHLORIDE RIDER 10 MEQ/100 ML PREMIX IV PRN (08:27)
[2021-01-20] MEDS ORDERED: MAGNESIUM SULF RIDER 2 GM/50 ML PREMIX IV PRN (08:27)
[2021-01-20] MEDS ORDERED: DIAZEPAM 5 MG TABLET PO ONE (08:27)
[2021-01-20] MEDS ORDERED: diphenhydrAMINE CAP 50 MG CAPSULE PO ONE (08:27)
[2021-01-20] MEDS ORDERED: diphenhydrAMINE CAP 25 MG CAPSULE ONE (09:19)
[2021-01-20] MEDS ORDERED: diphenhydrAMINE CAP 25 MG CAPSULE PO ONE (09:33)
[2021-01-20] MEDS ORDERED: NITROGLYCERIN DRIP 50 MG/250 ML BOTTLE IV ONE (11:02)
[2021-01-20] MEDS ORDERED: MIDAZOLAM 2 MG/2 ML VIAL ONE (11:02)
[2021-01-20] MEDS ORDERED: fentaNYL 100 MCG/2 ML VIAL ONE (11:03)
[2021-01-20] MEDS ORDERED: VERAPAMIL 5 MG/2 ML VIAL ONE (11:03)
[2021-01-20] MEDS ORDERED: methylPREDNISolone SOD SUC 125 MG/2 ML VIAL ONE (11:09)
[2021-01-20] MEDS ORDERED: TIROFIBAN 5,000 MCG/100 ML PREMIX IV ONE (11:33)
[2021-01-20] MEDS ORDERED: ENOXAPARIN 30 MG/0.3 ML SYRINGE ONE (11:33)
[2021-01-20] MEDS ORDERED: TIROFIBAN 5,000 MCG/100 ML PREMIX IV SCH (11:50)
[2021-01-20] MEDS ORDERED: TICAGRELOR 90 MG TABLET ONE (11:57)
[2021-01-20] MEDS: SODIUM CHLORIDE 0.9% 1,000 ML IV SCH ×2 (13:14→15:29)
[2021-01-20] MEDS: PANTOPRAZOLE 40 MG TABLET PO SCH (13:14)
[2021-01-20] MEDS: TICAGRELOR 90 MG TABLET PO SCH ×2 (13:14→21:14)
[2021-01-20] MEDS: METOPROLOL SUCCINATE XL 25 MG TABLET PO SCH (13:14)
[2021-01-20] MEDS ORDERED: ENOXAPARIN 60 MG/0.6 ML SYRINGE SUBCUT SCH (15:00)
[2021-01-20 15:27] LABS: PT Patient Result 11.1 SECS (10.5-12.0)
[2021-01-21 06:31] LABS: Basophils % 0.2 % (0.0-0.8); Hematocrit 34.3 VOL% (35.7-47.0); Hemoglobin 11.1 GM/DL (12.0-16.0); Immature Granulocytes % 0.4 %; Immature Granulocytes Absolute 0.05 #; Lymphocytes # 1.1 10*3/uL (1.4-4.0); Lymphocytes % 9.7 % (21.3-54.2); Mean Corpuscular HGB Conc 32.4 GM/DL (32-36); Mean Corpuscular Volume 93.2 FL (87-102); Mean Platelet Volume 10.1 FL (9.6-12.0); Monocytes % 7.1 % (1.7-12.7); Neutrophils % 82.6 % (38.7-73.9); Platelet Count 246 T/CUMM (130-400); Red Blood Count 3.68 MC/CUMM (3.8-5.5); Red Cell Distribution Width 13.1 % (9.3-17.3); White Blood Count 11.3 T/CUMM (4-12)
[2021-01-21] MEDS: SODIUM CHLORIDE 0.9% 1,000 ML IV SCH ×2 (06:46→10:45)
[2021-01-21 06:49] LABS: Calcium 9.5 MG/DL (8.5-10.1); Osmolality,Calculated 278.7 MOS/KG (273-304); Potassium 4.3 MMOL/L (3.5-5.1)
[2021-01-21] MEDS: METOPROLOL SUCCINATE XL 25 MG TABLET PO SCH (09:28)
[2021-01-21] MEDS: PANTOPRAZOLE 40 MG TABLET PO SCH (09:28)
[2021-01-21] MEDS: TICAGRELOR 90 MG TABLET PO SCH (09:28)
[2021-01-21] MEDS: ASPIRIN CHEW 81 MG TABLET PO SCH (09:28)
[2021-01-21] MEDS ORDERED: NITROGLYCERIN SL 0.4 MG TABLET SL PRN (09:56)
[2021-01-21] MEDS ORDERED: SIMETHICONE CHEW 125 MG TABLET PO SCH (12:00)
[2021-01-21 12:38] VITALS: BP 121/58
[2021-01-22] MEDS ORDERED: ATORVASTATIN 40 MG TABLET PO SCH (09:00)
== END 2021-01-21 13:00 | disposition home or self-care (01) ==
LOC: SUATTDRO → N.ED 00:09 → N.EDINP 00:09 → N.TELES 04:25 → SUATTDRO 04:29 → N.TELES 13:13
PROVIDERS: ADMIT Internal Medicine; ATTEND Internal Medicine
PROC: CLCCHCL (ICD-10-PCS; 2021-01-20 10:15)

== ENCOUNTER 2022-01-03 22:36 | Observation (INO) ==
[2022-01-03 23:01] LABS: Basophils # 0.1 10*3/uL (0.0-0.2); Basophils % 0.9 % (0.0-0.8); Eosinophils # 0.4 10*3/uL (0.0-0.87); Eosinophils % 6.8 % (0.00-10.9); Hematocrit 37.5 VOL% (35.7-47.0); Immature Granulocytes % 0.2 %; Immature Granulocytes Absolute 0.01 #; Lymphocytes # 2.1 10*3/uL (1.4-4.0); Lymphocytes % 39.5 % (21.3-54.2); Mean Platelet Volume 9.3 FL (9.6-12.0); Monocytes # 0.6 10*3/uL (0.11-0.8); Monocytes % 11.3 % (1.7-12.7); Neutrophils % 41.3 % (38.7-73.9); Platelet Count 232 T/CUMM (130-400); Red Blood Count 3.99 MC/CUMM (3.8-5.5); Red Cell Distribution Width 12.4 % (9.3-17.3); White Blood Count 5.4 T/CUMM (4-12)
[2022-01-03 23:11] LABS: INR 0.9; PT Patient Result 10.3 SECS (10.1-12.1); Partial Thromboplastin Time 25.7 SECS (23.7-32.9)
[2022-01-03] MEDS ORDERED: METHOCARBAMOL 1,000 MG/10 ML VIAL IV STA (23:12)
[2022-01-03] MEDS ORDERED: NITROGLYCERIN 2% OINT 1 INCH/GM PACK TOP STA (23:12)
[2022-01-03 23:25] LABS: Albumin 4.2 G/DL (3.4-5.0); Bilirubin,Total 0.7 MG/DL (0.20-1.00); Calcium 9.8 MG/DL (8.5-10.1); Osmolality,Calculated 281.3 MOS/KG (273-304); Potassium 4.3 MMOL/L (3.5-5.1); Total Protein 6.8 G/DL (6.4-8.2)
[2022-01-04] MEDS ORDERED: guaiFENesin/DM ER 600-30 MG TABLET PO PRN (00:25)
[2022-01-04] MEDS ORDERED: diphenhydrAMINE CAP 25 MG CAPSULE PO PRN (00:25)
[2022-01-04] MEDS ORDERED: hydrALAZINE 20 MG/1 ML VIAL IV PRN (00:25)
[2022-01-04] MEDS ORDERED: ACETAMINOPHEN 325 MG TABLET PO PRN (00:25)
[2022-01-04] MEDS ORDERED: NICOTINE 21 MG/24 HR PATCH TRANSDERM PRN (00:25)
[2022-01-04] MEDS ORDERED: ZALEPLON 5 MG CAPSULE PO PRN (00:25)
[2022-01-04] MEDS: ALBUTEROL 2.5 MG/3 ML NEB RESP TX SCH ×3 (03:51→10:57)
[2022-01-04 04:43] LABS: Basophils # 0.1 10*3/uL (0.0-0.2); Basophils % 1.2 % (0.0-0.8); Eosinophils # 0.4 10*3/uL (0.0-0.87); Eosinophils % 7.7 % (0.00-10.9); Hematocrit 35.8 VOL% (35.7-47.0); Hemoglobin 11.7 GM/DL (12.0-16.0); Immature Granulocytes % 0.2 %; Immature Granulocytes Absolute 0.01 #; Lymphocytes # 2.1 10*3/uL (1.4-4.0); Lymphocytes % 41.7 % (21.3-54.2); Mean Corpuscular HGB Conc 32.7 GM/DL (32-36); Mean Corpuscular Volume 92.7 FL (87-102); Mean Platelet Volume 9.8 FL (9.6-12.0); Monocytes # 0.5 10*3/uL (0.11-0.8); Monocytes % 10.5 % (1.7-12.7); Neutrophils % 38.7 % (38.7-73.9); Platelet Count 219 T/CUMM (130-400); Red Blood Count 3.86 MC/CUMM (3.8-5.5); Red Cell Distribution Width 12.3 % (9.3-17.3)
[2022-01-04 05:06] LABS: Calcium 9.6 MG/DL (8.5-10.1); Potassium 3.9 MMOL/L (3.5-5.1)
[2022-01-04] MEDS ORDERED: CYCLOBENZAPRINE 10 MG TABLET PO ONE (08:31)
[2022-01-04] MEDS ORDERED: PANTOPRAZOLE 40 MG TABLET PO SCH (09:00)
[2022-01-04] MEDS ORDERED: METOPROLOL SUCCINATE XL 25 MG TABLET PO SCH (09:00)
[2022-01-04] MEDS ORDERED: MULTIVITAMIN (CENTRUM) TABLET PO SCH (09:00)
[2022-01-04] MEDS ORDERED: amLODIPine 5 MG TABLET PO SCH (09:00)
[2022-01-04] MEDS ORDERED: CLOPIDOGREL 75 MG TABLET PO SCH (09:00)
[2022-01-04 12:14] VITALS: BP 112/67
[2022-01-04] MEDS ORDERED: CYCLOBENZAPRINE 10 MG TABLET PO SCH (21:00)
[2022-01-05] MEDS ORDERED: LEVOTHYROXINE 75 MCG TABLET PO SCH (06:30)
[2022-01-05] MEDS ORDERED: ASPIRIN EC 81 MG TABLET PO SCH (09:00)
== END 2022-01-04 16:02 | disposition home or self-care (01) ==
LOC: N.2W 22:36 → N.ED 22:36 → N.2W 01-04 01:42
PROVIDERS: ADMIT Internal Medicine; ATTEND Internal Medicine